=== PATIENT | female | born 1945 | race Two or more races ===

== ENCOUNTER 2017-06-09 09:51 | Outpatient (CLI) | payer OTHER ==
[2017-06-19] MEDS ORDERED: ROBAXIN500 MG PO (10:15)
[2017-07-20] MEDS ORDERED: TIZANIDINE HCL2 MG PO (10:14)
== END 2017-06-09 10:37 | disposition home or self-care (01) ==
LOC: RAD 501 09:51
DX: M25.511 Pain in right shoulder (principal); M54.2 Cervicalgia; M54.6 Pain in thoracic spine

== ENCOUNTER 2017-08-14 10:34 | Outpatient (CLI) | payer OTHER ==
[~2017-08-14 10:34] MED LIST: ROBAXIN500 MG PO; TIZANIDINE HCL2 MG PO
== END 2017-08-14 10:42 | disposition home or self-care (01) ==
LOC: RAD 501 10:34
DX: M25.511 Pain in right shoulder (principal)

== ENCOUNTER 2017-09-02 11:29 | Outpatient (CLI) | payer OTHER | END 2017-09-02 13:03 | disposition home or self-care (01) | LOC: RAD 501 11:29 | DX: M79.601 Pain in right arm (principal) ==

== ENCOUNTER 2017-11-24 10:27 | Outpatient (CLI) | payer OTHER | END 2017-11-24 17:29 | disposition home or self-care (01) | LOC: NUCLEAR 10:27 | DX: M81.0 Age-related osteoporosis without current pathological fracture (principal) ==

== ENCOUNTER → 2019-07-05 | Outpatient (CLI) | payer OTHER | END | disposition home or self-care (01) | LOC: RAD 10:22 | DX: Z96.641 Presence of right artificial hip joint (principal) ==

== ENCOUNTER → 2019-07-07 | Outpatient (CLI) | payer OTHER | END | disposition home or self-care (01) | LOC: RAD 12:19 | DX: M46.1 Sacroiliitis, not elsewhere classified (principal); M54.5 Low back pain ==

== ENCOUNTER 2019-07-12 13:40 | Outpatient (CLI) | payer OTHER | END 2019-07-12 14:24 | disposition home or self-care (01) | LOC: NUCLEAR 13:40 | DX: M81.0 Age-related osteoporosis without current pathological fracture (principal) ==

== ENCOUNTER 2019-08-03 10:00 | Outpatient (CLI) | payer OTHER | END 2019-08-03 10:02 | disposition home or self-care (01) | LOC: RAD 10:00 | DX: M54.2 Cervicalgia (principal) ==

== ENCOUNTER → 2019-08-04 09:21 | Outpatient (CLI) | payer OTHER | END | disposition home or self-care (01) | LOC: LAB 09:21 | DX: E55.9 Vitamin D deficiency, unspecified (principal); M85.88 Other specified disorders of bone density and structure, other site; E21.2 Other hyperparathyroidism; M81.8 Other osteoporosis without current pathological fracture; E56.1 Deficiency of vitamin K ==

== ENCOUNTER 2020-05-17 09:28 | Outpatient (CLI) | payer OTHER | END 2020-05-17 15:00 | disposition home or self-care (01) | LOC: LAB 09:28 | PROVIDERS: ATTEND Orthopaedic Surgery | DX: M85.88 Other specified disorders of bone density and structure, other site (principal); E55.9 Vitamin D deficiency, unspecified; E21.2 Other hyperparathyroidism; E88.89 Other specified metabolic disorders; M81.8 Other osteoporosis without current pathological fracture; E56.1 Deficiency of vitamin K ==

== ENCOUNTER → 2021-01-24 13:14 | Outpatient (CLI) | payer OTHER | END | disposition home or self-care (01) | LOC: NUCLEAR 13:14 | PROVIDERS: ATTEND Orthopaedic Surgery | DX: M81.0 Age-related osteoporosis without current pathological fracture (principal) ==

== ENCOUNTER 2023-01-26 13:00 | Outpatient (CLI) | payer OTHER | END 2023-01-26 13:04 | disposition home or self-care (01) | LOC: NUCLEAR 13:00 | PROVIDERS: ATTEND Internal Medicine Rheumatology | DX: M81.0 Age-related osteoporosis without current pathological fracture (principal) ==

== ENCOUNTER → 2024-07-28 09:46 | Outpatient (CLI) | payer OTHER | END | disposition home or self-care (01) | LOC: LAB 09:46 | PROVIDERS: ATTEND Orthopaedic Surgery | DX: E55.9 Vitamin D deficiency, unspecified (principal); M85.9 Disorder of bone density and structure, unspecified; E56.1 Deficiency of vitamin K ==

== ENCOUNTER 2024-07-28 10:13 | Outpatient (CLI) | payer OTHER | END 2024-07-28 10:19 | disposition home or self-care (01) | LOC: RAD 10:13 | PROVIDERS: ATTEND Orthopaedic Surgery | DX: M25.572 Pain in left ankle and joints of left foot (principal); M79.672 Pain in left foot; Z96.652 Presence of left artificial knee joint ==

== ENCOUNTER 2024-09-12 11:30 | Outpatient (CLI) | payer OTHER | END 2024-09-12 11:32 | disposition home or self-care (01) | LOC: TOM 11:30 | PROVIDERS: ATTEND Internal Medicine | DX: Z12.2 Encounter for screening for malignant neoplasm of respiratory organs (principal) | CPT/HCPCS: 71260; Q9965 ==

== ENCOUNTER 2024-12-09 07:15 | Outpatient (CLI) | payer OTHER | END 2024-12-09 07:16 | disposition home or self-care (01) | LOC: NUCLEAR 07:15 | PROVIDERS: ATTEND Internal Medicine | DX: I20.9 Angina pectoris, unspecified (principal) | CPT/HCPCS: 78452; 93017; A9500; J0153 ==

== ENCOUNTER 2025-01-27 10:53 | Outpatient (CLI) | payer OTHER | END 2025-01-27 10:54 | disposition home or self-care (01) | LOC: NUCLEAR 10:53 | PROVIDERS: ATTEND Internal Medicine Rheumatology | DX: M85.80 Other specified disorders of bone density and structure, unspecified site (principal); M81.0 Age-related osteoporosis without current pathological fracture ==